=== PATIENT | female | born 2000 | race Hispanic/Latino ===

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

== ENCOUNTER 2022-06-02 08:51 | Outpatient (CLI) | payer OTHER | END 2022-06-02 08:52 | disposition home or self-care (01) | LOC: BICULT 08:51 | PROVIDERS: ATTEND Nurse Practitioner Women's Health | DX: T83.32XA Displacement of intrauterine contraceptive device, initial encounter (principal) | CPT/HCPCS: 76856 ==